=== PATIENT | female | born 1965 | race Caucasian/White ===

== ENCOUNTER 2017-11-29 13:02 | Observation (INO) | payer BC, OTHER ==
[~2017-11-29] VITALS: Ht 162.6 cm; Wt 89.0 kg
[~2017-11-29 13:02] MED LIST: CYCL-36 PO; LORTA10 PO; PROP10TA6 PO
[2017-11-29 13:07] VITALS: PULSE 85; RESP 16; TEMP 98.6; O2SAT 99
[2017-11-29] MEDS ORDERED: LISI2.5T3 PO (13:43)
--- NOTE | 2017-11-29 13:56 | PD ---
HPI Chief Complaint: GI Complaint Time Seen by Provider: 13:43 Travel History International Travel<30 days: No Contact w/Intl Traveler<30days: No Traveled to known affect area: No History of Present Illness HPI This 52-year-old female is complaining of rectal bleeding. She says that around 2:00 this morning she woke up with crampy abdominal pain and diarrhea. She had 3 or 4 loose stools and then she started passing blood. She says she has had 3 or 4 bloody bowel movements. This has never happened to her before. She has never had a colonoscopy. She is having left-sided abdominal pain. She did eat some chicken wings last night. Her last bloody bowel movement was about 2 hours ago. She has history of appendectomy, right oophorectomy, C- section and tubal ligation. She does not take any blood thinners PFS Past Medical History Hypertension: Yes Tetanus Vaccination: Unknown Influenza Vaccination: No ?: Not LMP: YESTERDAY Past Surgical History Appendectomy: Yes Gynecologic Surgery: Yes (HAS 1 OVARY) Social History Alcohol Use: Yes (OCCASIONAL) Tobacco Use: No Substance Use: No Allergies-Medications (Allergen,Severity, Reaction): Coded Allergies: No Known Allergies (Verified Adverse Reaction, Unknown, 11/29/17) Reported Meds & Prescriptions Reported Meds & Active Scripts Active Reported Lisinopril 2.5 Mg Tab Unknown Dose PO DAILY Review of Systems General / Constitutional: No: Fever, Chills Eyes: No: Diploplia, Blurred Vision HENT: No: Headaches, Vertigo Cardiovascular: No: Chest Pain or Discomfort, Palpitations Respiratory: No: Cough, Shortness of Breath Gastrointestinal: Positive: Diarrhea, Hematochezia, No: Nausea, Vomiting Genitourinary: No: Urgency, Frequency Musculoskeletal: No: Myalgias, Arthralgias Skin: No Rash, No Itching Neurologic: No: Weakness Hematologic/Lymphatic: No: Easy Bruising Physical Exam Narrative GENERAL: Well-developed female SKIN: Focused skin assessment warm/dry. HEAD: Atraumatic. Normocephalic. EYES: Pupils equal and round. No scleral icterus. No injection or drainage. ENT: No nasal bleeding or discharge. Mucous membranes pink and moist. NECK: Trachea midline. No JVD. CARDIOVASCULAR: Regular rate and rhythm. No murmur appreciated. RESPIRATORY: No accessory muscle use. Clear to auscultation. Breath sounds equal bilaterally. GASTROINTESTINAL: Abdomen soft, left-sided tenderness without guarding or rigidity, nondistended. Hepatic and splenic margins not palpable. Rectal exam there is some blood present in the rectal vault. No masses are felt MUSCULOSKELETAL: No obvious deformities. No clubbing. No cyanosis. No edema. NEUROLOGICAL: Awake and alert. No obvious cranial nerve deficits. Motor grossly within normal limits. Normal speech. PSYCHIATRIC: Appropriate mood and affect; insight and judgment normal. Data Data Last Documented VS Vital Signs Date Time Temp Pulse Resp B/P (MAP) Pulse Ox O2 Delivery O2 Flow Rate FiO2 11/29/17 13:07 98.6 85 16 99 Orders Orders Complete Blood Count With Diff (11/29/17 13:50) Comprehensive Metabolic Panel (11/29/17 13:50) Prothrombin Time / Inr (Pt) (11/29/17 13:50) Act Partial Throm Time (Ptt) (11/29/17 13:50) Urinalysis - C+S If Indicated (11/29/17 13:50) Ct Abd/Pel W Iv Contrast(Rout) (11/29/17 13:50) Type And Screen (11/29/17 13:50) Iohexol 350 Inj (Omnipaque 350 Inj) (11/29/17 14:55) Labs Laboratory Tests Test 11/29/17 14:05 11/29/17 14:15 White Blood Count 8.8 TH/MM3 Red Blood Count 4.49 MIL/MM3 Hemoglobin 12.3 GM/DL Hematocrit 37.9 % Mean Corpuscular Volume 84.3 FL Mean Corpuscular Hemoglobin 27.3 PG Mean Corpuscular Hemoglobin Concent 32.4 % Red Cell Distribution Width 13.6 % Platelet Count 304 TH/MM3 Mean Platelet Volume 7.6 FL Neutrophils (%) (Auto) 69.7 % Lymphocytes (%) (Auto) 20.1 % Monocytes (%) (Auto) 7.8 % Eosinophils (%) (Auto) 1.9 % Basophils (%) (Auto) 0.5 % Neutrophils # (Auto) 6.1 TH/MM3 Lymphocytes # (Auto) 1.8 TH/MM3 Monocytes # (Auto) 0.7 TH/MM3 Eosinophils # (Auto) 0.2 TH/MM3 Basophils # (Auto) 0.0 TH/MM3 CBC Comment DIFF FINAL Differential Comment Prothrombin Time 10.4 SEC Prothromb Time International Ratio 1.0 RATIO Activated Partial Thromboplast Time 26.9 SEC Blood Urea Nitrogen 21 MG/DL Creatinine 0.79 MG/DL Random Glucose 106 MG/DL Total Protein 7.5 GM/DL Albumin 3.4 GM/DL Calcium Level 8.3 MG/DL Alkaline Phosphatase 82 U/L Aspartate Amino Transf (AST/SGOT) 14 U/L Alanine Aminotransferase (ALT/SGPT) 24 U/L Total Bilirubin 0.7 MG/DL Sodium Level 141 MEQ/L Potassium Level 3.7 MEQ/L Chloride Level 108 MEQ/L Carbon Dioxide Level 29.9 MEQ/L Anion Gap 3 MEQ/L Estimat Glomerular Filtration Rate 77 ML/MIN Urine Color YELLOW Urine Turbidity CLEAR Urine pH 6.0 Urine Specific [place] 1.025 Urine Protein NEG mg/dL Urine Glucose (UA) NEG mg/dL Urine Ketones NEG mg/dL Urine Occult Blood SMALL Urine Nitrite NEG Urine Bilirubin NEG Urine Urobilinogen 0.2 MG/DL Urine Leukocyte Esterase NEG Urine Squamous Epithelial Cells 0-5 /hpf Microscopic Urinalysis Comment CULT NOT INDICATED MDM Medical Decision Making Medical Screen Exam Complete: Yes Emergency Medical Condition: Yes Medical Record Reviewed: Yes Differential Diagnosis Differential includes rectal bleeding, diverticulosis, anemia Narrative Course Hemoglobin is 12.3. Patient has had a bloody bowel movement while here Diagnosis Primary Impression: Lower GI bleed Georges Reddy MD November 29, 2017 13:56
[2017-11-29 14:17] LABS: AUTOMATED NEUTROPHIL # 6.1 TH/MM3 (1.8-7.7); BASOPHIL % 0.5 % (0.0-2.0); EOSINOPHIL # 0.2 TH/MM3 (0-0.4); EOSINOPHIL % 1.9 % (0.0-4.0); HEMATOCRIT 37.9 % (35.0-46.0); HEMOGLOBIN 12.3 GM/DL (11.6-15.3); LYMPH % 20.1 % (9.0-44.0); LYMPHOCYTE # 1.8 TH/MM3 (1.0-4.8); MEAN CELL VOLUME 84.3 FL (80.0-100.0); MEAN CORPUSCULAR HEMOGLOBIN 27.3 PG (27.0-34.0); MEAN CORPUSCULAR HGB CONC 32.4 % (32.0-36.0); MEAN PLATELET VOLUME 7.6 FL (7.0-11.0); MONO % 7.8 % (0.0-8.0); MONOCYTE # 0.7 TH/MM3 (0-0.9); NEUT % 69.7 % (16.0-70.0); PLATELET COUNT 304 TH/MM3 (150-450); RED BLOOD COUNT 4.49 MIL/MM3 (4.00-5.30); RED CELL DISTRIBUTION WIDTH 13.6 % (11.6-17.2); WHITE BLOOD COUNT 8.8 TH/MM3 (4.0-11.0)
[2017-11-29 14:25] LABS: BILIRUBIN, URINE NEG (NEG); BLOOD, URINE SMALL (NEG); GLUCOSE,URINE NEG (NEG); KETONE, URINE NEG (NEG); NITRITE,URINE NEG (NEG); URINE COLOR YELLOW (YELLW/STRAW); URINE LEUKOCYTE ESTERASE NEG (NEG)
[2017-11-29 14:30] LABS: SQUAMOUS EPITHELIAL CELL URINE 0-5 /hpf (0-5)
[2017-11-29 14:37] LABS: CHLORIDE 108 MEQ/L (98-107); SODIUM (NA) 141 MEQ/L (136-145)
[2017-11-29 14:40] LABS: ALBUMIN 3.4 GM/DL (3.4-5.0); BICARBONATE 29.9 MEQ/L (21.0-32.0); CALCIUM 8.3 MG/DL (8.5-10.1)
[2017-11-29 14:41] LABS: BLOOD UREA NITROGEN 21 MG/DL (7-18); GLUCOSE,RANDOM 106 MG/DL (74-106)
[2017-11-29 14:42] LABS: PROTHROMBIN TIME - PATIENT 10.4 SEC (9.8-11.6)
[2017-11-29 14:44] LABS: ALT (GPT) 24 U/L (10-53); AST (GOT) 14 U/L (15-37); CREATININE 0.79 MG/DL (0.50-1.00); GLOMERULAR FILTRATION RATE 77 ML/MIN (>89)
[2017-11-29 14:45] LABS: TOTAL BILIRUBIN ADULT 0.7 MG/DL (0.2-1.0); TOTAL PROTEIN 7.5 GM/DL (6.4-8.2)
[2017-11-29 14:46] LABS: ALKALINE PHOSPHATASE 82 U/L (45-117)
[2017-11-29] MEDS ORDERED: IOHEXOL 350 MG/ML 10 ML VIAL (for RAD DIAG) IVCONTRAST ONE (14:55)
[2017-11-29] MEDS ORDERED: SODIUM CHLOR 0.9% 1000 ML INJ 1,000 ML IV ONE (15:15)
[2017-11-29 15:16] VITALS: BP 126/75; PULSE 68; RESP 16; O2SAT 98
[2017-11-29] MEDS: PANTOPRAZOLE SOD 40 MG DELAYED RELEASE TAB PO SCH (15:27)
[2017-11-29] MEDS ORDERED: SODIUM CHLORIDE 0.9% FLUSH 10 ML FLUSH IV FLUSH PRN (15:30)
--- NOTE | 2017-11-29 15:31 | RADRPT ---
EXAM DATE/TIME: 11/29/2017 14:48 [facility] COMPARISON: No previous studies available for comparison. INDICATIONS : Left lower quadrant pain and cramping. Rectal bleeding and diarrhea. IV CONTRAST: 85 cc Omnipaque 350 (iohexol) IV ORAL CONTRAST: No oral contrast ingested. RADIATION DOSE: 18.14 CTDIvol (mGy) MEDICAL HISTORY : Hypertension. SURGICAL HISTORY : Appendectomy. Tubal ligation. section.Right oophorectomy. ENCOUNTER: Initial ACUITY: 1 day PAIN SCALE: 2/10 LOCATION: Left lower quadrant TECHNIQUE: Volumetric scanning of the abdomen and pelvis was performed. Using automated exposure control and ad justment of the mA and/or kV according to patient size, radiation dose was kept as low as reasonably achievable to obtain optimal diagnostic quality images. DICOM format image data is available electro nically for review and comparison. FINDINGS: The lower lungs are clear. 2 well-circumscribed appearing cyst in the liver Normal gallbladder Spleen, pancreas and adrenals unremarkable Symmetrical renal function without renal mass No ascites or adenopathy Cecum and terminal ileum unremarkable Bowel wall thickening in the distal transverse colon extending into the splenic flexure. Considerati ons would include both colitis as well as neoplastic process. The pelvis minimal diverticuli are evident. There is no diverticulitis There is 3.7 cm cystic mass left adnexa region There is no free fluid Next is unremarkable Degenerative changes in the lumbar spine. CONCLUSION: 1. Abnormal mid transverse colon. Focal early Colitis versus neoplasm 3.7 cm left adnexal mass Oscar Martin MD FACR on November 29, 2017 at 15:26 Board Certified Radiologist. This report was verified electronically.
--- NOTE | 2017-11-29 16:24 | HHI.HP ---
[facility] [place] No Primary Care Physician Admission Diagnosis LOWER GI BLEED Diagnoses: Chief Complaint: Abdominal pain Bloody stool Travel History International Travel<30 Days: No Contact w/Intl Traveler <30 Da: No Traveled to Known Affected Are: No History of Present Illness This is a pleasant 52-year-old female patient with a known medical history of hypertension who presented to the ED with complains of severe abdominal pain and rectal bleeding. Patient states that she awoke suddenly this morning around 2 AM with severe cramping abdominal pain located in her left lower quadrant and diarrhea with associated bright red blood in her stool. Patient states she did have 4 loose bowel movements with associated blood. Patient denies ever having this before. Denies ever having a colonoscopy in the past. Denies any recent black stool. Denies any prior symptoms or recent illness including fever, chills, cough, chest pain, nausea, vomiting, dysuria. Patient does admit to eating hot chicken wings last night but this is not abnormal for her to have occasionally in her diet. Patient does have a history of an appendectomy. Denies any known history of colon cancer or gastrointestinal problems in her family. Denies any tobacco abuse. PCP seen last week and lab work reportedly normal. Review of Systems Constitutional: DENIES: Fatigue, Fever, Weight loss Eyes: DENIES: Blurred vision, Diplopia Ears, nose, mouth, throat: DENIES: Oral lesions, Throat pain Respiratory: DENIES: Cough, Sputum production, Shortness of breath Cardiovascular: DENIES: Chest pain, Palpitations Gastrointestinal: COMPLAINS OF: Abdominal pain, Bloody stools, Diarrhea, DENIES : Black stools, Constipation, Nausea, Vomiting Musculoskeletal: DENIES: Joint pain Hematologic/lymphatic: DENIES: Bruising Immunologic/allergic: DENIES: Eczema Neurologic: DENIES: Abnormal gait Psychiatric: DENIES: Anxiety Except as stated in HPI: all other systems reviewed are Neg Past Family Social History Past Medical History Hypertension Past Surgical History Appendectomy Right oophorectomy Tubal ligation Reported Medications Active Reported Lisinopril 2.5 Mg Tab Unknown Dose PO DAILY Allergies: Coded Allergies: No Known Allergies (Verified Adverse Reaction, Unknown, 11/29/17) Active Ordered Medications Current Medications Medications (Trade) Dose Ordered Sig/[place] Route Start Time Stop Time Status Last Admin Sodium Chloride 1,000 ml @ 200 mls/hr Q5H ONCE IV 11/29/17 15:15 11/29/17 20:14 11/29/17 15:19 (NS Flush) 2 ml UNSCH PRN IV FLUSH 11/29/17 15:30 (NS Flush) 2 ml BID IV FLUSH 11/29/17 21:00 (Protonix) 40 mg DAILY PO 11/29/17 15:30 11/29/17 15:27 Family History Maternal medical history significant for diabetes and CHF. Social History Patient denies any tobacco abuse, alcohol or illicit drug use. Physical Exam Vital Signs Vital Signs Date Time Temp Pulse Resp B/P (MAP) Pulse Ox O2 Delivery O2 Flow Rate FiO2 11/29/17 15:36 11/29/17 15:16 68 16 126/75 (92) 98 Room Air 11/29/17 13:07 98.6 85 16 99 Physical Exam GENERAL: Well-developed, well-nourished patient in NAD. SKIN: Warm and dry. No rash. HEAD: Normocephalic. Atraumatic. EYES: Pupils equal and round. No scleral icterus. No injection or drainage. ENT: No nasal bleeding or discharge. Mucous membranes pink and moist. NECK: Supple. Trachea midline. CARDIOVASCULAR: Regular rate and rhythm. S1, S2 noted. No murmur appreciated. RESPIRATORY: No accessory muscle use. Clear to auscultation. Breath sounds equal bilaterally. GASTROINTESTINAL: Abdomen soft, non-tender, nondistended. Normoactive bowel sounds x4. No abdominal pain to palpation. MUSCULOSKELETAL: No obvious deformities. Extremities without clubbing, cyanosis , or edema. NEUROLOGICAL: Awake and alert. No obvious cranial nerve deficits. Motor grossly within normal limits. 5/5 muscle strength in bilateral upper and lower extremities. Normal speech. PSYCHIATRIC: Appropriate mood and affect; insight and judgment normal. Laboratory Laboratory Tests Test 11/29/17 14:05 11/29/17 14:15 White Blood Count 8.8 Red Blood Count 4.49 Hemoglobin 12.3 Hematocrit 37.9 Mean Corpuscular Volume 84.3 Mean Corpuscular Hemoglobin 27.3 Mean Corpuscular Hemoglobin Concent 32.4 Red Cell Distribution Width 13.6 Platelet Count 304 Mean Platelet Volume 7.6 Neutrophils (%) (Auto) 69.7 Lymphocytes (%) (Auto) 20.1 Monocytes (%) (Auto) 7.8 Eosinophils (%) (Auto) 1.9 Basophils (%) (Auto) 0.5 Neutrophils # (Auto) 6.1 Lymphocytes # (Auto) 1.8 Monocytes # (Auto) 0.7 Eosinophils # (Auto) 0.2 Basophils # (Auto) 0.0 CBC Comment DIFF FINAL Differential Comment Prothrombin Time 10.4 Prothromb Time International Ratio 1.0 Activated Partial Thromboplast Time 26.9 Blood Urea Nitrogen 21 Creatinine 0.79 Random Glucose 106 Total Protein 7.5 Albumin 3.4 Calcium Level 8.3 Alkaline Phosphatase 82 Aspartate Amino Transf (AST/SGOT) 14 Alanine Aminotransferase (ALT/SGPT) 24 Total Bilirubin 0.7 Sodium Level 141 Potassium Level 3.7 Chloride Level 108 Carbon Dioxide Level 29.9 Anion Gap 3 Estimat Glomerular Filtration Rate 77 Urine Color YELLOW Urine Turbidity CLEAR Urine pH 6.0 Urine Specific [place] 1.025 Urine Protein NEG Urine Glucose (UA) NEG Urine Ketones NEG Urine Occult Blood SMALL Urine Nitrite NEG Urine Bilirubin NEG Urine Urobilinogen 0.2 Urine Leukocyte Esterase NEG Urine Squamous Epithelial Cells 0-5 Microscopic Urinalysis Comment CULT NOT INDICATED Result Diagram: 11/29/17 1405 11/29/17 1405 Imaging Last Impressions Abdomen/Pelvis CT 11/29/17 1350 Signed Impressions: Service Date/Time: Wednesday, November 29, 2017 14:48 - CONCLUSION: 1. Abnormal mid transverse colon. Focal early Colitis versus neoplasm 3.7 cm left adnexal mass Oscar Martin MD FACR Septic Shock Reassessment Septic shock perfusion: reassessment completed Caprini VTE Risk Assessment Caprini VTE Risk Assessment: No/Low Risk (score <= 1) Caprini Risk Assessment Model Point Value = 1 Point Value = 2 Point Value = 3 Point Value = 5 Age 41-60 Minor surgery BMI > 25 kg/m2 Swollen legs Varicose veins or History of unexplained or recurrent spontaneous Oral contraceptives or hormone replacement Sepsis (< 1 month) Serious lung disease, including pneumonia (< 1 month) Abnormal pulmonary function Acute myocardial infarction Congestive heart failure (< 1 month) History of inflammatory bowel disease Medical patient at bed rest Age 61-74 Arthroscopic surgery Major open surgery (> 45 min) Laparoscopic surgery (> 45 min) Malignancy Confined to bed (> 72 hours) Immobilizing plaster cast Central venous access Age >= 75 History of VTE Family history of VTE Factor V Leiden Prothrombin [id number] Lupus anticoagulant Anticardiolipin antibodies Elevated serum homocysteine Heparin-induced thrombocytopenia Other congenital or acquired thrombophilia Stroke (< 1 month) Elective arthroplasty Hip, pelvis, or leg fracture Acute spinal cord injury (< 1 month) Prophylaxis Regimen Total Risk Factor Score Risk Level Prophylaxis Regimen 0-1 Low Early ambulation 2 Moderate Order ONE of the following: *Sequential Compression Device (SCD) *Heparin 5000 units SQ BID 3-4 Higher Order ONE of the following medications: *Heparin 5000 units SQ TID *Enoxaparin/Lovenox 40 mg SQ daily (WT < 150 kg, CrCl > 30 mL/min) *Enoxaparin/Lovenox 30 mg SQ daily (WT < 150 kg, CrCl > 10-29 mL/min) *Enoxaparin/Lovenox 30 mg SQ BID (WT < 150 kg, CrCl > 30 mL/min) AND/OR *Sequential Compression Device (SCD) 5 or more Highest Order ONE of the following medications: *Heparin 5000 units SQ TID (Preferred with Epidurals) *Enoxaparin/Lovenox 40 mg SQ daily (WT < 150 kg, CrCl > 30 mL/min) *Enoxaparin/Lovenox 30 mg SQ daily (WT < 150 kg, CrCl > 10-29 mL/min) *Enoxaparin/Lovenox 30 mg SQ BID (WT < 150 kg, CrCl > 30 mL/min) AND *Sequential Compression Device (SCD) Assessment and Plan Problem List: (1) Lower GI bleed ICD Code: K92.2 - Gastrointestinal hemorrhage, unspecified Status: Acute Plan: Patient has been admitted for observation. Abdomen/pelvis CT reviewed showing abnormal mid transverse colon. Focal early colitis versus neoplasm 3.7 cm left adnexal mass. Vital signs are stable. Afebrile. No leukocytosis at this time. Monitor for infection. CBC reviewed essentially unremarkable. Upon presentation hemoglobin 12.3/hematocrit 37.9. Trend H&H is every 6 hours. Monitor for any bleeding. BMP reviewed essentially unremarkable. Coags all normal. UA negative. Type and screen ordered for possible blood transfusion. Monitor blood pressure, vital signs have been stable. Allow patient for clear liquid diet. N.p.o. after midnight, gastroenterology consulted, appreciate input recommendations. Ensure hydration, continue IV fluids. Protonix started daily. (2) Hypertension ICD Code: I10 - Essential (primary) hypertension Plan: Blood pressure controlled. Will restart home lisinopril. Monitor blood pressure trends. DVT prophylaxis: SCDs. Ambulation. Armida Blunt November 29, 2017 16:24
[2017-11-29] MEDS ORDERED: PILL SPLITTER OTHER PRN (16:45)
[2017-11-29 16:54] VITALS: BP 143/91; PULSE 75; RESP 16; TEMP 97.2; O2SAT 93
[2017-11-29] MEDS: CIPROFLOXACIN 400 MG PREMIX 200 ML IV SCH (17:09)
[2017-11-29] MEDS ORDERED: MAGNESIUM CITRATE SOLN 300 ML BTL PO ONE ×2 (17:15→19:15)
--- NOTE | 2017-11-29 17:36 | MB ---
cc: Brian Perez MD,Radha Yeung MD DATE: 11/29/2017 REASON FOR CONSULTATION: Rectal bleeding, abdominal pain. HISTORY OF PRESENT ILLNESS: Ms. Ahn is a 52-year-old lady basically admitted with complaints of rectal bleeding, abdominal pain and diarrhea for 1 day. She states her symptoms started after eating chicken at [employer]. She said her consumed the same meal, but he is not ill. She states she had diarrhea with cramping initially, but when she started to have rectal bleeding, she came to the hospital. REVIEW OF SYSTEMS: Currently, the patient is having some abdominal discomfort. No bleeding and no diarrhea. PAST MEDICAL HISTORY: Hypertension. PAST SURGICAL HISTORY: Appendectomy, oophorectomy, tubal ligation. MEDICINES ON ADMISSION: Lisinopril. ALLERGIES: NONE DOCUMENTED. SOCIAL HISTORY: No tobacco, no alcohol reported. PHYSICAL EXAMINATION: GENERAL: Reveals a well-nourished lady in no apparent distress. VITAL SIGNS: Vitals are stable. HEAD AND NECK: Anicteric sclerae. CHEST: Bilateral air entry with rales. ABDOMEN: Soft. Tenderness to palpation in the left lower quadrant. No guarding, no rigidity. NEUROLOGIC: Exam is nonfocal. RECTAL: Deferred at this time. LABORATORY DATA: Reveal white cell count of 8.8, hemoglobin 12.3. Creatinine is 0.79. IMAGING STUDIES: CT of the abdomen and pelvis reveals a possibility of colitis in the mid-colon. IMPRESSION: Colitis, likely infectious. RECOMMENDATIONS: 1. Stool studies, IV antibiotics, Flagyl and metronidazole as recommended. 2. Liquid diet. 3. Colonoscopy planned for tomorrow with magnesium citrate prep. This has been discussed with the patient. She is agreeable to this plan. Thank you for this referral. MD ELMER Alexandre/SHERITA , 05:11 PM , 05:34 PM
[2017-11-29] MEDS: metroNIDAZOLE 500 MG INJ 100 ML IV SCH (18:20)
[2017-11-29 18:41] LABS: HEMOGLOBIN 12.5 GM/DL (11.6-15.3)
[2017-11-29] MEDS: SODIUM CHLORIDE 0.9% FLUSH 10 ML FLUSH IV FLUSH SCH (19:58)
[2017-11-29 20:00] VITALS: BP 157/87; PULSE 79; RESP 20; TEMP 97.4; O2SAT 99
[2017-11-30] VITALS: BP 133/74; PULSE 104; RESP 20; TEMP 97.3; O2SAT 98
[2017-11-30] MEDS: metroNIDAZOLE 500 MG INJ 100 ML IV SCH ×4 (00:20→18:47)
[2017-11-30] MEDS: CIPROFLOXACIN 400 MG PREMIX 200 ML IV SCH ×3 (00:20→17:44)
[2017-11-30 03:33] LABS: HEMATOCRIT 36.6 % (35.0-46.0); HEMOGLOBIN 12.1 GM/DL (11.6-15.3)
[2017-11-30] MEDS: LISINOPRIL 5 MG TAB PO SCH (08:10)
[2017-11-30] MEDS: PANTOPRAZOLE SOD 40 MG DELAYED RELEASE TAB PO SCH (08:10)
[2017-11-30] MEDS: SODIUM CHLORIDE 0.9% FLUSH 10 ML FLUSH IV FLUSH SCH ×2 (08:12→19:33)
[2017-11-30 08:29] VITALS: BP 132/78; PULSE 84; RESP 18; TEMP 97.9; O2SAT 98
--- NOTE | 2017-11-30 08:39 | HHI.PR ---
Subjective Remarks Follow-up lower GI bleed and colitis. Patient seen and examined lying in bed comfortably no apparent distress. Patient had prep overnight. Await colonoscopy this morning. Denies any abdominal pain, nausea or vomiting. Vital signs are stable. Afebrile. Possible discharge home after colonoscopy today depending on GI recommendations. Objective Vitals Vital Signs Date Time Temp Pulse Resp B/P (MAP) Pulse Ox O2 Delivery O2 Flow Rate FiO2 11/30/17 08:29 97.9 84 18 132/78 (96) 98 11/30/17 00:00 97.3 104 20 133/74 (93) 98 11/29/17 20:00 97.4 79 20 157/87 (110) 99 11/29/17 16:54 97.2 75 16 143/91 (108) 93 11/29/17 15:36 11/29/17 15:16 68 16 126/75 (92) 98 Room Air 11/29/17 13:07 98.6 85 16 99 I/O 11/29/17 11/29/17 11/29/17 11/30/17 11/30/17 11/30/17 07:00 15:00 23:00 07:00 15:00 23:00 Intake Total 1900 ml 400 ml Output Total 8 ml Balance 1892 ml 400 ml Intake Oral 600 ml IV Total 1300 ml 400 ml Output Urine Total 3 ml Stool Total 5 ml # Voids 4 # Bowel Movements 1 4 Result Diagram: 11/30/17 0320 11/29/17 1405 Imaging Last Impressions Abdomen/Pelvis CT 11/29/17 1350 Signed Impressions: Service Date/Time: Wednesday, November 29, 2017 14:48 - CONCLUSION: 1. Abnormal mid transverse colon. Focal early Colitis versus neoplasm 3.7 cm left adnexal mass Oscar Martin MD FACR Objective Remarks GENERAL: Well-developed, well-nourished patient in NAD. SKIN: Warm and dry. No rash. HEAD: Normocephalic. Atraumatic. EYES: Pupils equal and round. No scleral icterus. No injection or drainage. ENT: No nasal bleeding or discharge. Mucous membranes pink and moist. NECK: Supple. Trachea midline. CARDIOVASCULAR: Regular rate and rhythm. S1, S2 noted. No murmur appreciated. RESPIRATORY: No accessory muscle use. Clear to auscultation. Breath sounds equal bilaterally. GASTROINTESTINAL: Abdomen soft, non-tender, nondistended. Normoactive bowel sounds x4. MUSCULOSKELETAL: No obvious deformities. Extremities without clubbing, cyanosis , or edema. NEUROLOGICAL: Awake and alert. No obvious cranial nerve deficits. Motor grossly within normal limits. 5/5 muscle strength in bilateral upper and lower extremities. Normal speech. PSYCHIATRIC: Appropriate mood and affect; insight and judgment normal. A/P Problem List: (1) Lower GI bleed ICD Code: K92.2 - Gastrointestinal hemorrhage, unspecified Status: Acute Plan: Patient has been admitted for observation. Abdomen/pelvis CT reviewed showing abnormal mid transverse colon. Focal early colitis versus neoplasm 3.7 cm left adnexal mass. Vital signs are stable. Afebrile. No leukocytosis at this time. Monitor for infection. CBC reviewed essentially unremarkable. Upon presentation hemoglobin 12.3/hematocrit 37.9. Trend H&H is every 6 hours. They have been stable overnight. Monitor for any bleeding. BMP reviewed essentially unremarkable. Coags all normal. UA negative. Type and screen ordered for possible blood transfusion. Not needed at this time. Monitor blood pressure, vital signs have been stable. Allow patient for clear liquid diet. N.p.o. after midnight, gastroenterology consulted, appreciate input recommendations. Patient undergo colonoscopy today. Ensure hydration, continue IV fluids. Protonix started daily. (2) Hypertension ICD Code: I10 - Essential (primary) hypertension Plan: Blood pressure controlled. Will restart home lisinopril. Monitor blood pressure trends. DVT prophylaxis: SCDs. Ambulation. Discharge Planning Gastroenterology performed colonoscopy, severe colitis in the transverse colon. Still having some bleeding. Will attempt to advance diet, continue antibiotics. Hopeful discharge tomorrow morning. Armida Blunt November 30, 2017 08:39
[2017-11-30 12:01] VITALS: BP 122/69; PULSE 85; RESP 17; TEMP 97.2; O2SAT 97
[2017-11-30 14:58] VITALS: BP 152/91; PULSE 89; RESP 20; TEMP 98.5; O2SAT 99
[2017-11-30 15:10] LABS: HEMATOCRIT 35.1 % (35.0-46.0); HEMOGLOBIN 11.8 GM/DL (11.6-15.3)
[2017-11-30] MEDS ORDERED: LACTATED RINGER'S 1000 ML IV PRN (16:00)
[2017-11-30] MEDS ORDERED: CHLORHEXIDINE GLUCONATE 2 % 1 PACK (2 CLOTHS) TOPICAL PRN (16:00)
[2017-11-30] MEDS ORDERED: METOPROLOL TARTRATE 25 MG TAB PO PRN (16:00)
[2017-11-30] MEDS ORDERED: POVIDONE IODINE 5% (ANTISEPSIS KIT) 4 APPLICATIONS EACH NARE PRN (16:00)
[2017-11-30] MEDS ORDERED: SODIUM CHLORID 0.9% 500 ML IV PRN (16:00)
--- NOTE | 2017-11-30 16:13 | GIPROC ---
[facility] [address] [place] [address], [id number] COLONOSCOPY PROCEDURE REPORT EXAM DATE: 11/30/2017 PATIENT NAME: Shira Ahn MR #: [id number] BIRTHDATE: 1965 ENDOSCOPIST: Brian Perez MD ORDER #: [id number] CHASER HELPER: Dirk Alonzo STATUS: inpatient INDICATIONS: The patient is a 52 yr old female here for a colonoscopy due to abdominal pain and hematochezia PROCEDURE PERFORMED: Colonoscopy with biopsy MEDICATIONS: None and Per Anesthesia. PREP QUALITY: The [place] Bowel Prep Score was Right colon 3, Mid colon 2, and Left colon 3. Total = 8. ESTIMATED BLOOD LOSS: None CONSENT: The patient understands the risks and benefits of the procedure and understands that these risks include, but are not limited to: sedation, allergic reaction, infection, perforation and/or bleeding. Alternative means of evaluation and treatment include, among others: physical exam, x-rays, and/or surgical intervention. The patient elects to proceed with this endoscopic procedure. medical equipment was checked for proper function. Hand hygiene and appropriate measures for infection prevention was taken. After the risks, benefits and alternatives of the procedure were thoroughly explained, Informed consent was verified, confirmed and timeout was successfully executed by the treatment team. A digital exam revealed external hemorrhoids The Pentax [id number] endoscope was introduced through the anus and advanced to the cecum, which was identified by both the appendix and ileocecal valve. The instrument was then slowly withdrawn as the colon was fully examined. COLON FINDINGS: A 5 x 10cm circumferential patch of colitis was found in the transverse colon. The mucosa was congested, edematous, erythematous, friable and bleeding. This is consistent with ischemic colitis disease. This is consistent with infectious colitis disease. Multiple biopsies of the area were performed using cold forceps. Retroflexed views revealed internal hemorrhoids and Retroflexed views revealed medium internal hemorrhoids The scope was then completely withdrawn from the patient and the procedure terminated. PROCEDURE WITHDRAWAL TIME:6minutes ADVERSE EVENTS: There were no complications. IMPRESSIONS: 1. 5 x 10cm circumferential colitis was found in the transverse colon; The mucosa was congested, edematous, erythematous, friable and bleeding; This is consistent with ischemic colitis. This is consistent with infectious colitis.; multiple biopsies of the area were performed using cold forceps 2. Retroflexed views revealed internal hemorrhoids 3. Retroflexed views revealed medium internal hemorrhoids 4. Revealed external hemorrhoids RECOMMENDATIONS: Await biopsy results. Biopsy results will not be ready for 7-10 days. If you don't hear from us in two weeks, call our office for results. RECALL: Return 1 year Colonoscopy, pending biopsy results Brian Perez MD eSigned: Brian Perez MD 11/30/2017 4:12 PM cc: PATIENT NAME: Shira Ahn MR#: [id number]
[2017-11-30 17:09] VITALS: BP 134/77; PULSE 87; RESP 18; TEMP 97.5; O2SAT 99
[2017-11-30 20:36] VITALS: BP 123/88; PULSE 84; RESP 20; TEMP 98.8; O2SAT 20
[2017-12-01 00:16] VITALS: BP 118/68; PULSE 90; RESP 20; TEMP 98; O2SAT 96
[2017-12-01] MEDS: CIPROFLOXACIN 400 MG PREMIX 200 ML IV SCH (00:28)
[2017-12-01] MEDS: metroNIDAZOLE 500 MG INJ 100 ML IV SCH ×2 (00:28→06:04)
[2017-12-01 08:00] VITALS: BP 136/80; PULSE 73; RESP 16; O2SAT 100
--- NOTE | 2017-12-01 08:18 | HHI.PR ---
Subjective Remarks Follow-up lower GI bleed and colitis. Patient seen and examined, lying in bed comfortably. No pain. All symptoms resolved. Patient is tolerating p.o. intake, no nausea or vomiting. Okay to discharge from GI standpoint. Will follow-up in office. Patient is stable and agreeable to plan. Vital signs stable. Afebrile. Objective Vitals Vital Signs Date Time Temp Pulse Resp B/P (MAP) Pulse Ox O2 Delivery O2 Flow Rate FiO2 12/01/17 00:16 98.0 90 20 118/68 (85) 96 11/30/17 20:36 98.8 84 20 123/88 (100) 20 11/30/17 17:09 97.5 87 18 134/77 (96) 99 11/30/17 16:26 92 16 110/66 (81) 99 11/30/17 16:16 98.3 100 16 113/68 (83) 98 11/30/17 14:58 98.5 89 20 152/91 (111) 99 11/30/17 12:01 97.2 85 17 122/69 (86) 97 11/30/17 08:29 97.9 84 18 132/78 (96) 98 I/O 11/30/17 11/30/17 11/30/17 12/01/17 12/01/17 12/01/17 07:00 15:00 23:00 07:00 15:00 23:00 Intake Total 400 ml 1430 ml 100 ml Balance 400 ml 1430 ml 100 ml Intake Oral 780 ml IV Total 400 ml 650 ml 100 ml # Voids 4 6 2 # Bowel Movements 4 0 Result Diagram: 11/30/17 1451 11/29/17 1405 Imaging Last Impressions Abdomen/Pelvis CT 11/29/17 1350 Signed Impressions: Service Date/Time: Wednesday, November 29, 2017 14:48 - CONCLUSION: 1. Abnormal mid transverse colon. Focal early Colitis versus neoplasm 3.7 cm left adnexal mass Oscar Martin MD FACR Objective Remarks GENERAL: Well-developed, well-nourished patient in NAD. SKIN: Warm and dry. No rash. HEAD: Normocephalic. Atraumatic. EYES: Pupils equal and round. No scleral icterus. No injection or drainage. ENT: No nasal bleeding or discharge. Mucous membranes pink and moist. NECK: Supple. Trachea midline. CARDIOVASCULAR: Regular rate and rhythm. S1, S2 noted. No murmur appreciated. RESPIRATORY: No accessory muscle use. Clear to auscultation. Breath sounds equal bilaterally. GASTROINTESTINAL: Abdomen soft, non-tender, nondistended. Normoactive bowel sounds x4. MUSCULOSKELETAL: No obvious deformities. Extremities without clubbing, cyanosis , or edema. NEUROLOGICAL: Awake and alert. No obvious cranial nerve deficits. Motor grossly within normal limits. 5/5 muscle strength in bilateral upper and lower extremities. Normal speech. PSYCHIATRIC: Appropriate mood and affect; insight and judgment normal. A/P Problem List: (1) Lower GI bleed ICD Code: K92.2 - Gastrointestinal hemorrhage, unspecified Status: Acute Plan: Patient has been admitted for observation. Abdomen/pelvis CT reviewed showing abnormal mid transverse colon. Focal early colitis versus neoplasm 3.7 cm left adnexal mass. Vital signs are stable. Afebrile. No leukocytosis at this time. CBC reviewed essentially unremarkable. Upon presentation hemoglobin 12.3/hematocrit 37.9. Trend H&H is every 6 hours. They have been stable overnight. Monitor for any bleeding. BMP reviewed essentially unremarkable. Coags all normal. UA negative. Type and screen ordered for possible blood transfusion. Not needed at this time. Monitor blood pressure, vital signs have been stable. Gastroenterology consulted, appreciate input recommendations. Patient underwent colonoscopy showing severe colitis. Internal and external hemorrhoids noted. Patient tolerating p.o. intake. Follow-up GI outpatient for biopsy results. Return in 1 year colonoscopy. Protonix started daily. Will continue upon discharge. (2) Hypertension ICD Code: I10 - Essential (primary) hypertension Plan: Blood pressure controlled. Will restart home lisinopril. Monitor blood pressure trends. DVT prophylaxis: SCDs. Ambulation. Armida Blunt December 01, 2017 08:18
--- NOTE | 2017-12-01 08:47 | HHI.DCPOC ---
Discharge Care Plan Diagnosis: (1) Hypertension (2) Colitis (3) Lower GI bleed Goals to Promote Your Health * To prevent worsening of your condition and complications * To maintain your health at the optimal level Directions to Meet Your Goals Take your medications as prescribed Follow your dietary instruction Follow activity as directed Keep your appointments as scheduled Take your immunizations and boosters as scheduled If your symptoms worsen call your PCP, if no PCP go to Urgent Care Center or Emergency Room Smoking is Dangerous to Your Health. Avoid second hand smoke Call the 24-hour hour crisis hotline for domestic abuse at Armida Blunt December 01, 2017 08:47
--- NOTE | 2017-12-01 08:47 | HHI.DS ---
Discharge Summary Admission Date November 29, 2017 at 15:13 Discharge Date: December 02, 2017 Admitting Diagnosis LOWER GI BLEED (1) Lower GI bleed ICD Code: K92.2 - Gastrointestinal hemorrhage, unspecified Status: Acute (2) Hypertension ICD Code: I10 - Essential (primary) hypertension Procedures Please see below. Brief History - From Admission This is a pleasant 52-year-old female patient with a known medical history of hypertension who presented to the ED with complains of severe abdominal pain and rectal bleeding. Patient states that she awoke suddenly this morning around 2 AM with severe cramping abdominal pain located in her left lower quadrant and diarrhea with associated bright red blood in her stool. Patient states she did have 4 loose bowel movements with associated blood. Patient denies ever having this before. Denies ever having a colonoscopy in the past. Denies any recent black stool. Denies any prior symptoms or recent illness including fever, chills, cough, chest pain, nausea, vomiting, dysuria. Patient does admit to eating hot chicken wings last night but this is not abnormal for her to have occasionally in her diet. Patient does have a history of an appendectomy. Denies any known history of colon cancer or gastrointestinal problems in her family. Denies any tobacco abuse. PCP seen last week and lab work reportedly normal. CBC/BMP: 11/30/17 1451 11/29/17 1405 Significant Findings Laboratory Tests Test 11/29/17 14:05 11/29/17 14:15 11/29/17 18:30 11/29/17 20:20 Blood Urea Nitrogen 21 MG/DL (7-18) Calcium Level 8.3 MG/DL (8.5-10.1) Aspartate Amino Transf (AST/SGOT) 14 U/L (15-37) Chloride Level 108 MEQ/L (98-107) Anion Gap 3 MEQ/L (5-15) Estimat Glomerular Filtration Rate 77 ML/MIN (>89) Urine Occult Blood SMALL (NEG) Test 11/30/17 03:20 11/30/17 14:51 Imaging Last Impressions Abdomen/Pelvis CT 11/29/17 1350 Signed Impressions: Service Date/Time: Wednesday, November 29, 2017 14:48 - CONCLUSION: 1. Abnormal mid transverse colon. Focal early Colitis versus neoplasm 3.7 cm left adnexal mass Oscar Martin MD FACR PE at Discharge GENERAL: Well-developed, well-nourished patient in NAD. SKIN: Warm and dry. No rash. HEAD: Normocephalic. Atraumatic. EYES: Pupils equal and round. No scleral icterus. No injection or drainage. ENT: No nasal bleeding or discharge. Mucous membranes pink and moist. NECK: Supple. Trachea midline. CARDIOVASCULAR: Regular rate and rhythm. S1, S2 noted. No murmur appreciated. RESPIRATORY: No accessory muscle use. Clear to auscultation. Breath sounds equal bilaterally. GASTROINTESTINAL: Abdomen soft, non-tender, nondistended. Normoactive bowel sounds x4. MUSCULOSKELETAL: No obvious deformities. Extremities without clubbing, cyanosis , or edema. NEUROLOGICAL: Awake and alert. No obvious cranial nerve deficits. Motor grossly within normal limits. 5/5 muscle strength in bilateral upper and lower extremities. Normal speech. PSYCHIATRIC: Appropriate mood and affect; insight and judgment normal. Pt update on day of discharge Follow-up lower GI bleed and colitis. Patient seen and examined, lying in bed comfortably. No pain. All symptoms resolved. Patient is tolerating p.o. intake, no nausea or vomiting. Okay to discharge from GI standpoint. Will follow-up in office. Patient is stable and agreeable to plan. Vital signs stable. Afebrile. Hospital Course Patient has been admitted for observation. Abdomen/pelvis CT reviewed reviewed abnormal mid transverse colon. Focal early colitis versus neoplasm 3.7 cm left adnexal mass. No leukocytosis at this time. CBC reviewed essentially unremarkable. Upon presentation hemoglobin 12.3/hematocrit 37.9. H&H stable. No further bleeding. BMP reviewed essentially unremarkable. Coags all normal. UA negative. Gastroenterology consulted, appreciate input recommendations. Patient underwent colonoscopy showing severe colitis. Internal and external hemorrhoids noted. Patient tolerating p.o. intake. Follow-up GI outpatient for biopsy results. Return in 1 year colonoscopy. Protonix started daily. Will continue upon discharge. Pt Condition on Discharge: Stable Discharge Disposition: Discharge Home Discharge Time: > 30 minutes Discharge Instructions DIET: Follow Instructions for: As Tolerated, No Restrictions Speech Therapy-Diet Recommends: Regular Activities you can perform: Regular-No Restrictions Follow up Referrals: Appointment for Follow Up Gastroenterology - 1 Week with Brian Perez MD PCP Follow-up - 1 Week PCP Follow-up New Medications: Ciprofloxacin (Ciprofloxacin) 500 Mg Tab 500 MG PO BID for Infection for 7 Days, #14 TAB 0 Refills Metronidazole (Metronidazole) 500 Mg Tab 500 MG PO TID for Infection for 7 Days, #21 TAB 0 Refills Pantoprazole (Protonix) 40 Mg Tab 40 MG PO DAILY for Reflux for 14 Days, #14 TAB 0 Refills Continued Medications: Lisinopril (Lisinopril) 2.5 Mg Tab Unknown Dose PO DAILY, #30 TAB 0 Refills Armida Blunt December 01, 2017 08:47
[2017-12-01] MEDS ORDERED: METR1TAB76 PO (08:49)
[2017-12-01] MEDS ORDERED: CIPR500T2 PO (08:49)
[2017-12-01] MEDS ORDERED: PROT40TA PO (08:50)
[2017-12-01] MEDS: PANTOPRAZOLE SOD 40 MG DELAYED RELEASE TAB PO SCH (09:04)
[2017-12-01] MEDS: LISINOPRIL 5 MG TAB PO SCH (09:04)
--- NOTE | 2017-12-01 11:50 | EKG ---
Date Performed: 11/30/2017 Time Performed: 05:41:15 PTAGE: 52 years EKG: Sinus rhythm NORMAL ECG NO PREVIOUS TRACING DOCTOR: Jason Macias Interpretating Date/Time 12/01/2017 11:46:51
== END 2017-12-01 11:42 | disposition home or self-care (01) ==
LOC: PHED 13:02 → PHEDA 15:13 → PH3A 15:49
PROVIDERS: ADMIT Hospitalist; ATTEND Hospitalist
DX: A09 Infectious gastroenteritis and colitis, unspecified (principal); K92.2 Gastrointestinal hemorrhage, unspecified; I10 Essential (primary) hypertension; K64.4 Residual hemorrhoidal skin tags; K64.8 Other hemorrhoids; R10.32 Left lower quadrant pain; Z90.721 Acquired absence of ovaries, unilateral
CPT/HCPCS: 00811; 45380; 74177; 80053; 81001; 85014; 85018; 85025; 85610; 85730; 86850; 86900; 86901; 87329; 87425; 87493; 87506; 88305; 93005; 96361; 96365; 96366; 96367; 96368; 99285; G0378; J0744; J7030; J7120; Q9967